=== PATIENT | male | born 1995 | race Caucasian/White ===

== ENCOUNTER 2017-08-23 20:36 | Emergency (ER) | payer OTHER ==
[~2017-08-23] VITALS: Ht 180.3 cm; Wt 74.9 kg
[2017-08-23 20:57] VITALS: TEMP 37.1; Ht 180.3 cm; Wt 74.9 kg
[2017-08-23] MEDS ORDERED: PERMETHRIN 5% CR 60 GM TUBE EXT ONE (21:45)
[2017-08-23 22:15] VITALS: BP 125/76; PULSE 65; O2SAT 97
--- NOTE | 2017-08-23 23:10 | EMERGENCY ROOM VISIT NOTE ---
History First contact with patient: 21:32 Chief Complaint: REFERRED BY DOCTOR Stated Complaint: SLOAN FOUND ON PENIS,WEAKNESS, DIZZY,HEADACHE History of Present Illness The patient is a 22 year old male who presents to the Emergency Room with complaints of discoloration on his penis for the past few weeks. The patient states that he has followed with his primary care physician, [facility], and a local urgent care clinic for this. He was referred to the ER from urgent care [facility] because he states that he may have seen small insects on his hands and penis. The patient has not had fever or chills. No chest pain , chest tightness, shortness of breath, or abdominal pain. He reports having STD testing performed that was negative. He has evidently had blood work was also normal. He has not had urethral drainage or discharge. He rates his discomfort a 1/10. Review of Systems More than 10 systems were reviewed and otherwise negative with the exception of history of present illness. Past Medical/Surgical History No chronic medical disease Family History No pertinent family history Social History Smoking Status: Never Smoker Occupation Status: [employer] student Current/Historical Medications No Active Prescriptions or Reported Meds Physical Exam Vital Signs Date Time Temp Pulse Resp B/P (MAP) Pulse Ox O2 Delivery O2 Flow Rate FiO2 08/23/17 22:15 65 20 125/76 97 08/23/17 20:57 37.1 62 20 135/73 97 Room Air Physical Exam VITALS: Vitals are noted on the nurse's note and reviewed by myself. Vital signs stable. GENERAL: Well-developed, well-nourished, white male, who is in no acute distress and resting comfortably. Patient is cooperative with the examination. HEAD: Normocephalic atraumatic. HEART: Regular rate and rhythm without murmurs gallops or rubs. LUNGS: Clear to auscultation bilaterally without wheezes, rales or rhonchi. No retractions or accessory muscle use. ABDOMEN: Positive normal bowel sounds x 4. Soft, nontender, without masses or organomegaly. No guarding or rebound tenderness. : Normal-appearing male circumcised phallus without urethral drainage discharge. There are scattered reddened discoloration around the shaft of the penis that do not appear vesicular in nature. No ulcerations noted. No inguinal tenderness. No testicular tenderness. MUSCULOSKELETAL: No muscle atrophy, erythema, or edema noted. Full range of motion in all extremities. Medical Decision & Procedures Medications Administered Medications (Trade) Dose Ordered Sig/Gerardo Route Start Time Stop Time Status Last Admin Dose Admin Permethrin (Elimite 5% Crm) 1 appln NOW ONCE EXT 08/23/17 21:45 08/23/17 21:46 DC 08/23/17 21:45 1 APPLN ED Course Physical exam and history were performed. Nursing notes, EMR, and Medication List were personally reviewed. Patient appears to have a rash of unknown origin on the shaft of his penis. The areas could correlate with lice. Evidently he has had outpatient STD testing. I do not appreciate distinct herpetic lesions or chancroid. I discussed options of care with the patient. We will trial a course of permethrin cream. The patient is evidently going home this week at the end of the semester. He should follow with his primary care physician or possibly urology back home next week. He was otherwise invited back to the ER with any new, worsening, or concerning symptoms. The chart was completed utilizing [employer] Voice Recognition Software. Grammatical errors, random word insertions, pronoun errors, and incomplete sentences are an occasional consequence of this system due to software limitations, ambient noise, and hardware issues. Any formal questions or concerns about the content, text, or information contained within the body of this dictation should be directly addressed to the provider for clarification. . Medical Decision Differential diagnosis: Etiologies such as contact dermatitis, viral exanthem, urticaria, allergic reaction, Childress-Taj syndrome, toxic epidermal necrolysis, erythema multiforme, cellulitis, scabies, HSV, varicella, zoster, eczema, staph scalded skin syndrome, fungal infection, as well as others were entertained. Impression Primary Impression: Rash and nonspecific skin eruption Departure Information Dispostion Home / Self-Care Condition GOOD Prescriptions No Active Prescriptions or Reported Meds Referrals No Doctor, Assigned Forms HOME CARE DOCUMENTATION FORM, IMPORTANT VISIT INFORMATION Patient Instructions My [facility] Additional Instructions You were seen and evaluated today on an emergency basis only. This is not a substitute for, or an effort to provide, complete comprehensive medical care. It is not possible to recognize and treat all injuries or illnesses in a single emergency department visit. For this reason it is recommended that you followup with Your primary care physician next week for recheck of your condition. Use permethrin cream as follows: Apply a thin layer of cream all over your skin from your neck down to your toes (including the soles of your feet). Be careful to apply cream in all skins folds , such as between your toes and fingers or around your waist or buttocks. You may need to use all of the cream in the tube to cover your body. Leave the cream on your skin for 8-14 hours. After 8-14 hours have passed, wash off the cream by bathing or showering. Your skin may be itchy after treatment with permethrin cream. This does not mean your treatment did not work. If you see live mites 14 days or more after treatment, then you will need to repeat the treatment process. You are welcome to return to the emergency department anytime with new, worsening, or concerning symptoms.
== END 2017-08-23 22:16 | disposition home or self-care (01) ==
LOC: C.EDB 20:38 → C.EDA 22:16
DX: R21 Rash and other nonspecific skin eruption (principal)